=== PATIENT | male | born 1975 | race African-American/Black ===

== ENCOUNTER 2025-02-08 16:36 | Emergency (ER) | payer BC ==
[2025-02-08 16:44] VITALS: BP 144/87; PULSE 67; RESP 20; TEMP 98.6; BMI 31.2
[2025-02-08 17:36] LABS: ABSOLUTE IMMATURE GRANULOCYTES 0.01 x10^3/uL (0.0-0.031); BASOPHILS # 0.01 x10^3/uL (0.01-0.08); EOSINOPHIL % 3.7 % (0.8-7.0); EOSINOPHILS # 0.20 x10^3/uL (0.04-0.54); MCHC 30.9 g/dl (32.3-36.5); MEAN CELL VOLUME 73.1 fl (79.0-92.2); MEAN PLT VOLUME 8.7 fl (9.4-12.4); MONOCYTE # 0.43 x10^3/uL (0.30-0.82); MONOCYTE % 7.9 % (5.3-12.2); RDW 15.2 % (12.1-15.9)
[2025-02-08 17:42] LABS: INR 0.95 (0.83-1.09); PROTHROMBIN TIME (PATIENT) 10.4 SEC (9.7-13.0)
[2025-02-08 17:45] LABS: ACTIVATED PTT 28.5 SECONDS (25.2-36.5)
[2025-02-08 18:06] LABS: GLUCOSE,RANDOM 93.0 mg/dL (74-106); TOT PROT 7.7 g/dl (6.4-8.2)
[2025-02-08 18:07] LABS: CO2 24.0 mmol/L (21-32)
[2025-02-08 18:09] LABS: ALK PHOS 70.0 U/L (40-150)
[2025-02-08 18:12] LABS: SGOT/AST 60.0 U/L (5-34); SGPT/ALT 53.0 U/L (0-55)
[2025-02-08 18:30] LABS: CREATININE 1.32 mg/dL (0.55-1.3)
[2025-02-08 18:32] LABS: HIV INTERPRETATION NEGATIVE (NEGATIVE)
[2025-02-08 18:33] LABS: HCV DIAGNOSTIC IN-HOUSE W/RFLX NON-REACTIVE (NONREACTIVE)
== END 2025-02-08 20:50 | disposition home or self-care (01) ==
LOC: JER 16:36
DX: R07.9 Chest pain, unspecified (principal); R06.02 Shortness of breath
CPT/HCPCS: 36415; 71046-TC-FY; 80053; 84484; 85025; 85379; 85610; 85730; 86803; 87389; 93005; 93010; 93970-TC; 99285-25